=== PATIENT | female | born 1955 | race Hispanic/Latino ===

== ENCOUNTER 2018-06-24 08:59 | Inpatient (IN) | payer BC, OTHER ==
[~2018-06-24] VITALS: Ht 157.5 cm; Wt 80.7 kg
[~2018-06-24 08:59] MED LIST: HYDROCHLOROTHIA25 MG PO; LEVOTHYROXINE75 MCG PO; LOSARTAN POTASS50 MG PO
[2018-06-24] MEDS ORDERED: ONDANSETRON HCL INJ 2 MG/ML VIAL IV STA (10:24)
[2018-06-24] MEDS ORDERED: MORPHINE SULFATE 2 MG/ML SYR IV STA (10:24)
[2018-06-24] MEDS ORDERED: SODIUM CHLORIDE 0.9% 500ML 500 ML IV STA (10:24)
[2018-06-24 10:50] LABS: BILIRUBIN,URINE NEGATIVE (NEGATIVE); CLARITY,URINE CLEAR (CLEAR); COLOR,URINE YELLOW (YELLOW); KETONES,URINE NEGATIVE (NEGATIVE); LEUKOCYTE ESTERASE ,URINE NEGATIVE (NEGATIVE); NITRITE,URINE NEGATIVE (NEGATIVE); PROTEIN,URINE DIPSTICK NEGATIVE (NEGATIVE); URINE UROBILINOGEN 0.2 mg/dL (0.2 - 1); WBC,URINE (MAN) 0-5 /HPF (0-5)
[2018-06-24 10:51] LABS: EPITHELIAL CELLS,URINE RARE /LPF
[2018-06-24 10:53] LABS: BASOPHILS % 0.2 % (0.0-1.0); EOSINOPHILS # (AUTO) 0.1 (0.0-0.4); EOSINOPHILS % 0.7 % (0.0-6.0); HEMATOCRIT 39.5 % (34.2-44.1); HEMOGLOBIN 13.2 g/dL (12.0-16.0); LYMPHOCYTES # (AUTO) 1.7 (1.0-3.2); LYMPHOCYTES % 18.7 % (18.0-39.1); MEAN CORPUSCULAR HEMOGLOBIN 29.5 pg (28-32); MEAN CORPUSCULAR HGB CONC 33.4 g/dL (31-35); MEAN CORPUSCULAR VOLUME 88.4 fL (81-99); MONOCYTES # (AUTO) 0.6 (0.2-0.8); MONOCYTES % 6.4 % (4.4-11.3); NEUTROPHILS # (AUTO) 6.6 (2.1-6.9); NEUTROPHILS % 73.8 % (38.7-80.0); PLATELET COUNT 203 x10e3/uL (140-360); RED BLOOD COUNT 4.47 x10e6/uL (3.6-5.1); RED CELL DISTRIBUTION WIDTH 14.4 % (11.7-14.4)
--- NOTE | 2018-06-24 14:52 | Diagnostic Imaging Report ---
EXAM: XR CHEST 1 VIEW DATE: 06/24/2018 10:24 AM INDICATION: Pain COMPARISON: 07/29/2007 FINDINGS: Lines and Tubes: None Heart and Mediastinum: No acute cardiomediastinal findings. Lungs and Pleura: No significant pleural effusion, pneumothorax, or focal consolidation. Bones and Soft Tissues: No acute findings. IMPRESSION: 1. No acute cardiopulmonary findings. Signed by: Dr. Helio Centeno MD on 06/24/2018 12:32 PM
--- NOTE | 2018-06-24 16:48 | Diagnostic Imaging Report ---
EXAM: CT Abdomen and Pelvis WITH contrast INDICATION: Pain COMPARISON: None. TECHNIQUE: Abdomen and Pelvis was scanned utilizing a multidetector helical scanner after administration of IV contrast. Coronal and sagittal reformations were obtained. IV CONTRAST: 100 mL Isovue-370 COMPLICATIONS: None RADIATION DOSE: Total DLP:633 mGy*cm Estimated effective dose: (DLP x 0.015 x size factor) mSv CTDIvol has been reviewed. It is below the limits set by the Radiation Protocol Committee (RPC). FINDINGS: Abdomen: Lung Bases: Probable atelectasis lingula. Solid Organs: Intrahepatic and extrahepatic biliary ductal dilatation present. What appears to be cholecystectomy clips are present in the gallbladder fossa; however, there is a 45 x 33 mm fluid density lesion within the gallbladder fossa. Adrenals, spleen, splenule, pancreas, and right kidney unremarkable. To small to characterize hypodensities left kidney. Upper GI Tract: Gastric decompression limits evaluation. No small bowel obstructive changes. Vascularity: Mild aortic vascular calcifications with no aneurysm. Lymph Nodes: No suspicious adenopathy. Other: Several small fat-containing ventral wall hernias. Pelvis: Bladder: Decompressed, limiting evaluation. Other: Uterus absent. Colon: There are a few diverticula with no CT evidence of diverticulitis. Appendix not inflamed. Bones: No acute findings. IMPRESSION: 1. Intrahepatic and extrahepatic biliary ductal dilatation. Clinical and laboratory correlation for biliary obstruction recommended. There is what appears to be cholecystectomy clips; however, there is a 45 x 33 mm fluid density lesion within the gallbladder fossa. Correlation with surgical history recommended. Choledochal cyst could have similar appearance. Ultrasound could be obtained for further evaluation if indicated. 2. Diverticulosis. Signed by: Dr. Helio Centeno MD on 06/24/2018 4:45 PM
[2018-06-24 18:52] LABS: INR 1.11; PARTIAL THROMBOPLASTIN TIME 26.8 seconds (23.8-35.5); PROTHROMBIN TIME 13.5 seconds (11.9-14.5)
[2018-06-24] MEDS ORDERED: SODIUM CHLORIDE 0.9% 50ML 50 ML ONE (18:56)
[2018-06-24] MEDS ORDERED: IOPAMIDOL 370 MG/ML 200 ML INFUS..BTL INJ ONE (18:56)
[2018-06-24 19:13] LABS: CREATINE KINASE 79 IU/L (29-168)
[2018-06-24 19:15] LABS: ALANINE AMINOTRANSFERASE 14 IU/L (0-55); ALBUMIN/GLOBULIN RATIO 1.1 (0.8-2.0); ALKALINE PHOSPHATASE 83 IU/L (40-150); ANION GAP 13.6 mmol/L (8-16); BLOOD UREA NITROGEN 18 mg/dL (7-26); BUN/CREATININE RATIO 23 (6-25); CARBON DIOXIDE 28 mmol/L (22-29); CHLORIDE 101 mmol/L (98-107); EST GLOMERULAR FILTRATION RATE > 60 ML/MIN (60-); GLUCOSE 96 mg/dL (74-118); POTASSIUM 3.6 mmol/L (3.5-5.1); SODIUM 139 mmol/L (136-145)
[2018-06-24 19:32] LABS: AMYLASE 1005 U/L (25-125); LIPASE 1078 U/L (8-78)
--- NOTE | 2018-06-24 19:41 | Diagnostic Imaging Report ---
EXAM: US GALLBLADDER INDICATION: RUQ pain COMPARISON: None TECHNIQUE: Transverse and longitudinal sonographic images of the right upper abdomen were obtained. FINDINGS: LIVER: 14.8 cm in the right midclavicular line. Increased echogenicity, normal contour, no masses. Main Portal Vein: Normal size with hepatopetal flow. GALLBLADDER: Rounded cystic area in the gallbladder fossa measuring 3.8 x 3.5 x 4.1 cm. No gallstones. No wall thickening Negative sonographic Sheikh's sign. BILE DUCTS: Mild intrahepatic biliary dilation. Common bile duct measures 1 cm. PANCREAS: Visualized portions are normal. RIGHT KIDNEY: 11.3 cm in length Echogenicity: Normal Collecting System: No hydronephrosis Stones: None Cyst/Mass: None FREE FLUID: None in the right upper quadrant of the abdomen IMPRESSION: Rounded cystic area in the gallbladder fossa measuring approximately 4 cm. Since it is adjacent to cholecystectomy clips on CT, this is suspected to represent a partial cholecystectomy. No gallstones. Mild intra and extrahepatic biliary dilation. Consider ERCP or MRCP to look for distal common bile duct stricture or stone if there is obstructive laboratory values. Signed by: Dr. Sonia Lerner M.D. on 06/24/2018 7:37 PM
[2018-06-24] MEDS ORDERED: ONDANSETRON HCL INJ 2 MG/ML VIAL IV PRN (19:45)
[2018-06-24] MEDS ORDERED: SODIUM CHLORIDE 0.9% 1000ML 1,000 ML IV ONE (19:45)
[2018-06-24] MEDS: SODIUM CHLORIDE 0.9% 1000ML 1,000 ML IV SCH ×2 (21:04→23:42)
[2018-06-24 21:30] VITALS: BP 131/72
[2018-06-24] MEDS ORDERED: ASPIR 8181 MG PO (22:33)
[2018-06-24] MEDS: HYDROMORPHONE 1MG/1ML INJ IV PRN (23:56)
[2018-06-25] VITALS (7 sets, daily range): BP systolic 126–167; BP diastolic 58–76
[2018-06-25] MEDS: SODIUM CHLORIDE 0.9% 1000ML 1,000 ML IV SCH ×5 (03:42→20:39)
[2018-06-25 05:45] LABS: BASOPHILS % 0.5 % (0.0-1.0); EOSINOPHILS # (AUTO) 0.2 (0.0-0.4); EOSINOPHILS % 2.5 % (0.0-6.0); HEMATOCRIT 35.7 % (34.2-44.1); HEMOGLOBIN 11.7 g/dL (12.0-16.0); LYMPHOCYTES # (AUTO) 1.6 (1.0-3.2); LYMPHOCYTES % 21.6 % (18.0-39.1); MEAN CORPUSCULAR HGB CONC 32.8 g/dL (31-35); MEAN CORPUSCULAR VOLUME 91.5 fL (81-99); MONOCYTES # (AUTO) 0.6 (0.2-0.8); MONOCYTES % 8.4 % (4.4-11.3); NEUTROPHILS # (AUTO) 5.1 (2.1-6.9); NEUTROPHILS % 66.6 % (38.7-80.0); PLATELET COUNT 146 x10e3/uL (140-360); RED CELL DISTRIBUTION WIDTH 14.7 % (11.7-14.4)
[2018-06-25 06:11] LABS: ALANINE AMINOTRANSFERASE 10 IU/L (0-55); ALBUMIN 3.1 g/dL (3.5-5.0); ALBUMIN/GLOBULIN RATIO 1.1 (0.8-2.0); ALKALINE PHOSPHATASE 70 IU/L (40-150); AMYLASE 196 U/L (25-125); ANION GAP 10.5 mmol/L (8-16); BLOOD UREA NITROGEN 15 mg/dL (7-26); BUN/CREATININE RATIO 21 (6-25); CALCIUM 8.3 mg/dL (8.4-10.2); CARBON DIOXIDE 23 mmol/L (22-29); CHLORIDE 110 mmol/L (98-107); CREATININE, SERUM 0.71 mg/dL (0.57-1.11); EST GLOMERULAR FILTRATION RATE > 60 ML/MIN (60-); GLUCOSE 94 mg/dL (74-118); LIPASE 137 U/L (8-78); POTASSIUM 3.5 mmol/L (3.5-5.1); SODIUM 140 mmol/L (136-145)
--- NOTE | 2018-06-25 11:30 | Diagnostic Imaging Report ---
EXAM: MRI MRCP WO DATE: 06/25/2018 8:00 AM INDICATION: Abdominal pain COMPARISON: Right upper quadrant ultrasound dated 06/24/[address] dated 06/24/2018 TECHNIQUE: MRCP protocol performed using1.5 Jennifer. Sequences obtained include axial T2 FRFSE FS, coronal and axial T2 SSFSE, SSFSE coronal spins. FINDINGS: Approximately 3.4 x 4.1 cm T2 hyperintense, T1 hypointense structure in the gallbladder fossa, which appears to be communicating to the common bile duct through a tubular structure (series 8, image 23). The common bile duct is mildly distended, measuring 1.1 cm. There are no filling defects or strictures. Mild intrahepatic biliary dilatation. Within the limitations of the exam, the liver, spleen, pancreas and adrenal glands are unremarkable. Mild loss of hepatic signal on out of phase images, representing mild steatosis. No upper abdominal free fluid or lymphadenopathy. The soft tissues and bones are unremarkable. IMPRESSION: 1. Cystic structure in the gallbladder fossa, most probably represents the gallbladder. The connecting tubular structure to the common bile duct, is probably the cystic duct. If there is history of cholecystectomy, this could represent gallbladder remnant and less likely to represent a choledochal cyst. 2. Mild intra and extrahepatic biliary dilatation without evidence of filling defect or choledocholithiasis. Signed by: Dr. uJan R Rodriguez MD on 06/25/2018 11:27 AM
[2018-06-25] MEDS: ACETAMIN/BUTALBITAL/CAFFEINE TAB PO PRN (13:31)
[2018-06-25] MEDS: FAMOTIDINE 20 MG/2 ML VIAL IV SCH (17:00)
[2018-06-26] VITALS (8 sets, daily range): BP systolic 151–172; BP diastolic 67–79
[2018-06-26] MEDS: SODIUM CHLORIDE 0.9% 1000ML 1,000 ML IV SCH ×3 (03:42→07:00)
[2018-06-26 06:02] LABS: AMYLASE 79 U/L (25-125); ANION GAP 12.5 mmol/L (8-16); BLOOD UREA NITROGEN 13 mg/dL (7-26); BUN/CREATININE RATIO 20 (6-25); CALCIUM 8.4 mg/dL (8.4-10.2); CARBON DIOXIDE 21 mmol/L (22-29); CHLORIDE 110 mmol/L (98-107); CHOL/HDL RATIO 3.2 (3.0-3.6); CHOLESTEROL 146 MD/DL (0-199); CREATININE, SERUM 0.64 mg/dL (0.57-1.11); EST GLOMERULAR FILTRATION RATE > 60 ML/MIN (60-); GLUCOSE 74 mg/dL (74-118); HDL CHOLESTEROL 46 MG/DL (40-60); LDL CHOLESTEROL 83 MG/DL (60-130); LIPASE 74 U/L (8-78); POTASSIUM 3.5 mmol/L (3.5-5.1); SODIUM 140 mmol/L (136-145); TRIGLYCERIDES 86 MG/DL (0-149)
--- NOTE | 2018-06-26 07:09 | Progress Note ---
DATE: NO DICTATION, LENGTH 0:6 Job#: [id number] [place]
--- NOTE | 2018-06-26 07:18 | Progress Note ---
DATE: June 26, 2018 TIME: 6:57 a.m. OVERNIGHT: No events. REVIEW OF SYSTEMS: Denies any dizziness, chest pain, shortness of breath, fever, chills, sweats, nausea, vomiting, or diarrhea. PHYSICAL EXAMINATION VITAL SIGNS: Have been reviewed. GENERAL: A tired-appearing woman resting in bed. HEENT: Anicteric. CARDIOVASCULAR: Normal S1 and S2. LUNGS: Moderate breath sounds. ABDOMEN: Soft and nondistended. She has mild tenderness in the epigastrium and the right upper quadrant. EXTREMITIES: No edema. SKIN: Dry. PSYCHIATRIC: Flat affect. NEUROLOGICAL: Alert and appropriate. LABS: Reviewed. MEDICATIONS: Reviewed. ASSESSMENT AND PLAN: This is a 62-year-old woman with: 1. Acute pancreatitis. 2. Biliary dilatation, extrahepatic. 3. Obesity. 4. Headache. 5. Diverticulosis. 6. Normocytic anemia. 7. Hyperbilirubinemia. 8. Cystic structure of the gallbladder fossa. PLAN 1. Possible ERCP to be performed. 2. Follow up with GI recommendations. 3. Continue n.p.o. status. 4. MRCP imaging has been reviewed, which showed a cystic structure at the gallbladder fossa. 5. Continue Fioricet for headache. 6. Continue p.r.n. Dilaudid. 7. Place the patient on normal saline at 40 mL an hour. 8. Prophylaxis. Will use SCD and Pepcid. 9. Disposition. Follow up GI recommendations. Job#: [id number] DINORAH
[2018-06-26] MEDS: FAMOTIDINE 20 MG/2 ML VIAL IV SCH ×2 (09:00→17:00)
[2018-06-26] MEDS ORDERED: MAGNESIUM HYDROXIDE 30 ML UDC PO ONE (13:15)
[2018-06-26] MEDS: HYDROMORPHONE 1MG/1ML INJ IV PRN (13:28)
[2018-06-26] MEDS: DOCUSATE SODIUM 100 MG CAP PO SCH (17:00)
[2018-06-26] MEDS: LOSARTAN POTASSIUM 100 MG TAB PO SCH (20:30)
[2018-06-27] VITALS (9 sets, daily range): BP systolic 158–187; BP diastolic 56–88
[2018-06-27 05:01] LABS: BASOPHILS % 0.4 % (0.0-1.0); EOSINOPHILS # (AUTO) 0.1 (0.0-0.4); EOSINOPHILS % 1.7 % (0.0-6.0); HEMATOCRIT 35.3 % (34.2-44.1); HEMOGLOBIN 11.9 g/dL (12.0-16.0); LYMPHOCYTES # (AUTO) 1.7 (1.0-3.2); MEAN CORPUSCULAR HEMOGLOBIN 29.8 pg (28-32); MEAN CORPUSCULAR HGB CONC 33.7 g/dL (31-35); MEAN CORPUSCULAR VOLUME 88.3 fL (81-99); MONOCYTES # (AUTO) 0.5 (0.2-0.8); MONOCYTES % 6.8 % (4.4-11.3); NEUTROPHILS # (AUTO) 4.8 (2.1-6.9); NEUTROPHILS % 66.7 % (38.7-80.0); PLATELET COUNT 176 x10e3/uL (140-360); RETICULOCYTE % 1.4 % (0.8-2.2)
[2018-06-27 05:46] LABS: FERRITIN 240.5 ng/mL (4.63-204.00)
[2018-06-27] MEDS: LEVOTHYROXINE SODIUM 75 MCG TAB PO SCH (06:06)
[2018-06-27] MEDS: SODIUM CHLORIDE 0.9% 1000ML 1,000 ML IV SCH (07:00)
[2018-06-27] MEDS: ASPIRIN 81 MG CHEW TAB PO SCH (09:00)
[2018-06-27] MEDS ORDERED: NON-FORMULARY MEDICATION (Losartan Potassium 50 MG) PO SCH (09:00)
[2018-06-27] MEDS: LOSARTAN POTASSIUM 100 MG TAB PO SCH (09:00)
[2018-06-27] MEDS: FAMOTIDINE 20 MG/2 ML VIAL IV SCH ×2 (09:15→17:31)
[2018-06-27] MEDS: HYDROCHLOROTHIAZIDE 25 MG TAB PO SCH (09:15)
[2018-06-27] MEDS: DOCUSATE SODIUM 100 MG CAP PO SCH ×2 (09:15→17:31)
[2018-06-28] VITALS (8 sets, daily range): BP systolic 138–202; BP diastolic 62–99
[2018-06-28 05:57] LABS: AMYLASE 55 U/L (25-125); LIPASE 58 U/L (8-78)
[2018-06-28] MEDS: LEVOTHYROXINE SODIUM 75 MCG TAB PO SCH (06:12)
[2018-06-28] MEDS: SODIUM CHLORIDE 0.9% 1000ML 1,000 ML IV SCH (07:00)
[2018-06-28] MEDS: ASPIRIN 81 MG CHEW TAB PO SCH (08:41)
[2018-06-28] MEDS: FAMOTIDINE 20 MG/2 ML VIAL IV SCH ×2 (08:41→16:54)
[2018-06-28] MEDS: DOCUSATE SODIUM 100 MG CAP PO SCH ×2 (08:41→16:54)
[2018-06-28] MEDS: HYDROCHLOROTHIAZIDE 25 MG TAB PO SCH (08:41)
[2018-06-28] MEDS: LOSARTAN POTASSIUM 100 MG TAB PO SCH (08:41)
[2018-06-28 08:45] LABS: BASOPHILS # (AUTO) 0.1 (0.0-0.1); BASOPHILS % 0.9 % (0.0-1.0); EOSINOPHILS # (AUTO) 0.2 (0.0-0.4); EOSINOPHILS % 2.6 % (0.0-6.0); HEMATOCRIT 34.8 % (34.2-44.1); HEMOGLOBIN 11.5 g/dL (12.0-16.0); LYMPHOCYTES # (AUTO) 1.9 (1.0-3.2); LYMPHOCYTES % 32.5 % (18.0-39.1); MEAN CORPUSCULAR HEMOGLOBIN 29.6 pg (28-32); MEAN CORPUSCULAR VOLUME 89.7 fL (81-99); MONOCYTES # (AUTO) 0.5 (0.2-0.8); MONOCYTES % 8.3 % (4.4-11.3); NEUTROPHILS # (AUTO) 3.3 (2.1-6.9); NEUTROPHILS % 55.5 % (38.7-80.0); PLATELET COUNT 183 x10e3/uL (140-360); RED BLOOD COUNT 3.88 x10e6/uL (3.6-5.1); RED CELL DISTRIBUTION WIDTH 14.2 % (11.7-14.4)
[2018-06-28 09:04] LABS: ANION GAP 15.2 mmol/L (8-16); BLOOD UREA NITROGEN 8 mg/dL (7-26); BUN/CREATININE RATIO 11 (6-25); CALCIUM 9.1 mg/dL (8.4-10.2); CARBON DIOXIDE 23 mmol/L (22-29); CHLORIDE 105 mmol/L (98-107); CREATININE, SERUM 0.74 mg/dL (0.57-1.11); EST GLOMERULAR FILTRATION RATE > 60 ML/MIN (60-); GLUCOSE 118 mg/dL (74-118); POTASSIUM 3.2 mmol/L (3.5-5.1); SODIUM 140 mmol/L (136-145)
[2018-06-28] MEDS: ACETAMIN/BUTALBITAL/CAFFEINE TAB PO PRN (10:24)
[2018-06-28] MEDS ORDERED: POTASSIUM CHLORIDE 20 MEQ TAB CR PO ONE (18:00)
[2018-06-28] MEDS ORDERED: HYDRALAZINE HCL 20 MG/ML VIAL IV ONE (20:15)
[2018-06-28] MEDS: HYDRALAZINE HCL 25 MG TAB PO SCH (20:48)
[2018-06-28] MEDS ORDERED: SODIUM CHLORIDE 0.9% 1000ML 1,000 ML IV SCH (21:30)
[2018-06-29] VITALS: BP 168/76
[2018-06-29] MEDS: ACETAMIN/BUTALBITAL/CAFFEINE TAB PO PRN (01:53)
[2018-06-29 04:00] VITALS: BP 171/74
[2018-06-29] MEDS: HYDRALAZINE HCL 25 MG TAB PO SCH (05:16)
[2018-06-29] MEDS: LEVOTHYROXINE SODIUM 75 MCG TAB PO SCH (05:17)
[2018-06-29 05:55] LABS: BASOPHILS % 0.6 % (0.0-1.0); EOSINOPHILS # (AUTO) 0.2 (0.0-0.4); EOSINOPHILS % 3.3 % (0.0-6.0); HEMATOCRIT 36.5 % (34.2-44.1); HEMOGLOBIN 12.1 g/dL (12.0-16.0); LYMPHOCYTES % 38.8 % (18.0-39.1); MEAN CORPUSCULAR HEMOGLOBIN 29.4 pg (28-32); MEAN CORPUSCULAR HGB CONC 33.2 g/dL (31-35); MEAN CORPUSCULAR VOLUME 88.6 fL (81-99); MONOCYTES # (AUTO) 0.6 (0.2-0.8); MONOCYTES % 11.2 % (4.4-11.3); NEUTROPHILS # (AUTO) 2.4 (2.1-6.9); NEUTROPHILS % 45.7 % (38.7-80.0); PLATELET COUNT 191 x10e3/uL (140-360); RED BLOOD COUNT 4.12 x10e6/uL (3.6-5.1); RED CELL DISTRIBUTION WIDTH 14.1 % (11.7-14.4)
[2018-06-29 06:23] LABS: ANION GAP 10.9 mmol/L (8-16); BLOOD UREA NITROGEN 8 mg/dL (7-26); BUN/CREATININE RATIO 11 (6-25); CALCIUM 9.3 mg/dL (8.4-10.2); CARBON DIOXIDE 27 mmol/L (22-29); CHLORIDE 105 mmol/L (98-107); CREATININE, SERUM 0.75 mg/dL (0.57-1.11); EST GLOMERULAR FILTRATION RATE > 60 ML/MIN (60-); GLUCOSE 94 mg/dL (74-118); POTASSIUM 3.9 mmol/L (3.5-5.1); SODIUM 139 mmol/L (136-145)
[2018-06-29 07:25] VITALS: BP 171/74
[2018-06-29] MEDS ORDERED: LABETALOL HCL 5 MG/ML 20ML VIAL IV STA (07:56)
[2018-06-29 08:00] VITALS: BP 151/64
[2018-06-29] MEDS ORDERED: COLACE100 M1 PO (08:00)
[2018-06-29] MEDS ORDERED: PEPCID20 MG PO (08:00)
[2018-06-29] MEDS ORDERED: HYDRALAZINE HCL25 MG PO (08:00)
[2018-06-29] MEDS: DOCUSATE SODIUM 100 MG CAP PO SCH (09:00)
[2018-06-29] MEDS: HYDROCHLOROTHIAZIDE 25 MG TAB PO SCH (09:00)
[2018-06-29] MEDS: ASPIRIN 81 MG CHEW TAB PO SCH (09:00)
[2018-06-29] MEDS: LOSARTAN POTASSIUM 100 MG TAB PO SCH (09:00)
[2018-06-29] MEDS ORDERED: FAMOTIDINE 20 MG TAB PO SCH (16:30)
--- NOTE | 2018-07-04 18:26 | Progress Note ---
DATE: June 27, 2018 TIME: 7:15 a.m. OVERNIGHT: No events. REVIEW OF SYSTEMS: Denies any dizziness, chest pain. Denies any fever, chills, sweats, nausea, vomiting, diarrhea, leg pain or back pain. VITAL SIGNS: Reviewed. PHYSICAL EXAMINATION GENERAL: A tired-appearing woman resting in bed. HEENT: Anicteric. CARDIOVASCULAR: Normal S1 and S2. LUNGS: Moderate breath sounds. ABDOMEN: Soft and nondistended. She has mild tenderness in the epigastrium. EXTREMITIES: No edema. SKIN: Dry. PSYCHIATRIC: Flat affect. LABS: Reviewed. MEDICATIONS: Reviewed. ASSESSMENT AND PLAN: This is a 62-year-old woman. 1. Acute pancreatitis. 2. Biliary dilatation, extrahepatic. 3. Obesity. 4. Headache. 5. Diverticulosis. 6. Normocytic anemia. 7. Hyperbilirubinemia. 8. Cystic structure of the gallbladder fossa. PLAN 1. Follow up GI recommendations. 2. Continue pain medications. 3. Continue IV fluids. 4. Monitor closely. Job#: [id number]
--- NOTE | 2018-07-04 18:29 | Progress Note ---
DATE: June 28, 2018 TIME: 7:30 a.m. OVERNIGHT: No events. REVIEW OF SYSTEMS: Denies any dizziness, chest pain, shortness of breath, fever, chills, sweats, leg pain, back pain, headache. VITAL SIGNS: Reviewed. PHYSICAL EXAMINATION GENERAL: A tired-appearing woman resting in bed. HEENT: Anicteric. CARDIOVASCULAR: Normal S1 and S2. LUNGS: Moderate breath sounds. ABDOMEN: Soft and nondistended. Mild tenderness in the epigastrium. EXTREMITIES: No edema. SKIN: Dry. PSYCHIATRIC: Normal affect. LABS: Reviewed. MEDICATIONS: Reviewed. ASSESSMENT AND PLAN: This is a 62-year-old woman. 1. Acute pancreatitis. 2. Biliary dilatation. 3. Obesity. 4. Diverticulosis. 5. Headache. 6. Normocytic anemia. 7. Hyperbilirubinemia. 8. Cystic structure of the gallbladder fossa. PLAN 1. Status post MRCP. 2. Continue bowel regimen. 3. Continue consulting management. 4. Will reassess in the morning. Job#: [id number]
--- NOTE | 2018-07-04 20:11 | Discharge Summary ---
PRINCIPAL DIAGNOSES 1. Acute pancreatitis. 2. Biliary dilatation. 3. Obesity. 4. Headache. 5. Diverticulosis. 6. Normocytic anemia. 7. Hyperbilirubinemia. 8. Cystic structure of the gallbladder fossa. SECONDARY DIAGNOSIS: Obesity. CHIEF COMPLAINT: Abdominal pain. HISTORY OF PRESENT ILLNESS: A 62-year-old woman with abdominal pain. Refer to the H and P for further details. HOSPITAL COURSE: The patient was found to have acute pancreatitis and treated with IV fluids and n.p.o. status. The patient improved. She had biliary dilatation. Had obesity. MRCP was done. The patient had diverticulosis and normocytic anemia and hyperbilirubinemia. She had a cystic structure of the gallbladder fossa. The patient did well with conservative management. GI services assisted in management. The patient is doing better and currently appropriate for discharge. Will follow the patient. DISCHARGE MEDICATIONS: Per electronic medical record. FOLLOWUP: Primary care doctor in 1 week and GI services in 2 weeks. ASHISH ENRIQUE MD Job#: [id number] [place]
== END 2018-06-29 12:02 | disposition home or self-care (01) | DRG 440 ==
LOC: ER 08:59 → ERHOLD 19:42 → MED/SURG3 21:13
PROVIDERS: ADMIT Internal Medicine; ATTEND Internal Medicine
DX: K85.10 Biliary acute pancreatitis without necrosis or infection (principal); K57.90 Diverticulosis of intestine, part unspecified, without perforation or abscess without bleeding; D64.9 Anemia, unspecified; E80.6 Other disorders of bilirubin metabolism; I10 Essential (primary) hypertension; E03.9 Hypothyroidism, unspecified; Z88.0 Allergy status to penicillin; E78.5 Hyperlipidemia, unspecified; I25.10 Atherosclerotic heart disease of native coronary artery without angina pectoris; E66.9 Obesity, unspecified; R51 Headache; K57.30 Diverticulosis of large intestine without perforation or abscess without bleeding; K80.80 Other cholelithiasis without obstruction; Z68.32 Body mass index [BMI] 32.0-32.9, adult
CPT/HCPCS: 36415; 71045; 74177; 74181; 76705; 80048; 80053; 80061; 81001; 82150; 82550; 82553; 82607; 82728; 83540; 83690; 84443; 84466; 84484; 85025; 85045; 85610; 85730; 86301; 93005; 99284; J0360; J1170; J2270; J2405; J7030; J7040; Q9967

== ENCOUNTER 2021-10-09 20:21 | Emergency (ER) | payer BC, MEDICARE ==
[~2021-10-09] VITALS: Ht 157.5 cm; Wt 80.7 kg
[~2021-10-09 20:21] MED LIST changes: +ASPIR 8181 MG PO; +COLACE100 M1 PO; +HYDRALAZINE HCL25 MG PO; +PEPCID20 MG PO
== END 2021-10-09 23:30 | disposition home or self-care (01) ==
LOC: ER 21:08
DX: R51.9 Headache, unspecified (principal); I10 Essential (primary) hypertension; E78.5 Hyperlipidemia, unspecified; E03.9 Hypothyroidism, unspecified
CPT/HCPCS: 70450; 99283